=== PATIENT | female | born 1975 | race Caucasian/White ===

== ENCOUNTER → 2017-12-23 08:10 | Outpatient (CLI) | payer OTHER, SELFPAY ==
--- NOTE | 2017-12-23 08:12 | DI.US.S_ITS ---
PROCEDURE: US ABDOMEN LIMITED INDICATIONS: Abdomen/Pelvic pain r/o Umbilical hernia TECHNIQUE: Real-time focused scanning was performed of the abdomen, with image documentation. COMPARISON: [facility], CT, ABDOMEN/PELVIS WITH CONTRAST, 11/01/2008, 11:21. FINDINGS: No anterior abdominal wall or periumbilical hernia identified. IMPRESSION: No hernia identified sonographically. If indicated CT could be performed for further assessment. Dictated by: Clarke HELTON Interpreted: Codi Taylor MD on 12/23/2017 at 10:39 Approved by: Codi Taylor M.D. on 12/23/2017 at 15:08
== END ==
PROVIDERS: Family Provider Family Medicine; PCP Family Medicine; Visit Provider Obstetrics & Gynecology
DX: R10.9 Unspecified abdominal pain (principal); R10.2 Pelvic and perineal pain
CPT/HCPCS: 76705

== ENCOUNTER 2018-01-28 06:44 | Day surgery (SDC) | payer OTHER, SELFPAY ==
[2018-01-25 14:56] VITALS: BMI 33.3
[2018-01-28] VITALS (9 sets, daily range): BP systolic 120–170; BP diastolic 82–101; PULSE 55–74; RESP 12–22; TEMP 36.1–36.3; O2SAT 96–100; BMI 33.3
--- NOTE | 2018-01-28 | PATH_ITS ---
[facility] Accession Number: [id number] . 01 Material submitted: . UTERUS AND RIGHT OVARY . 02 Diagnosis: Uterus and Right Ovary, Laparoscopic Supracervical Hysterctomy and Right Oophorectomy (Weight 86 grams, Morcellated Specimen): Portions of myometrium with focal regions of possible adenomyosis; negative for atypia and malignancy. Weakly proliferative and disordered proliferative endometrium; negative for glandular hyperplasia, cytologic atypia, and malignancy. Ovary with a benign corpus luteum, a benign follicular cyst, and a benign serous cyst (1.7 cm in greatest dimension). [facility]/01/31/2018 . 02 Electronically signed: . Kavitha Contreras MD, Pathologist NPI- [id number] . 01 Gross description: . Received in formalin, labeled uterus + right ovary, is a morcellated uterus (86 grams, 10.5 x 10.3 x 4.5 cm in aggregate) and an ovary (4.1 x 2.7 x 1.8 cm). The cervix, second ovary and fallopian tubes are absent. The specimen cannot be oriented and the endometrium and myometrium cannot be grossly measured. The parenchyma is gallo-white and unremarkable. The serosa is pale gallo smooth and shiny. The ovary has gallo-yellow smooth and shiny bosselated and focally flat serosa. The parenchyma is gallo-white solid cystic with corpus albicans and corpus luteum identified. The cavities (0.5 cm-1.7 cm) contain clear colorless fluid. The linings are smooth and flat with no excrescences identified. Section code: (A1-A4) uterine parenchyma; (A5) ovary, serially sectioned, territory sales representative. ([id number]) /[facility] . 02 Pathologist provided ICD-10: N83.201 . 02 CPT . 324166 Performed at: 01 [facility] [address] [place] [address], [place], [place] [id number] MD Satish Nesbitt MD Phone: [phone] Performed at: [facility] [address] [place], [place] [id number] MD Sukh Schneider MD Phone: [phone]
--- NOTE | 2018-01-28 06:20 | PM.PREOP ---
Pre-operative Note Interval Note Pre-op Check: History & Physical Reviewed by Physician
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
[2018-01-28] MEDS: LACTATED RINGERS 1,000 ML 42 ML IV (07:25)
[2018-01-28] MEDS: MIDAZOLAM 2 MG/2 ML VIAL IV (07:47)
[2018-01-28] MEDS: APREPITANT 40 MG CAPSULE PO (07:48)
[2018-01-28] MEDS: CEFAZOLIN 2 GM/100 ML FROZ.PIGGY IV (07:48)
[2018-01-28] MEDS: ACETAMINOPHEN IV 1,000 MG/100 ML VIAL 400 MG IV (08:30)
--- NOTE | 2018-01-28 08:33 | SUR.OPER ---
Lithotomy on padded OR bed. Rheems Pad Positioner under torso. Head on pillow, arms padded and tucked at sides. Legs secured in padded yellow fins stirrups.
[2018-01-28] MEDS: BUPIVACAINE 0.5% W/ EPI (PF) 30 ML VIAL INJ (08:38)
[2018-01-28] MEDS: ROPIVACAINE 0.2% PF 2 MG/ML 10ML AMP 20 ML INJ (08:45)
--- NOTE | 2018-01-28 09:36 | P.OP_ITS ---
Operative Date/Time/Diagnoses - Date of procedure: 01/28/18 Time of procedure: 09:30 Pre-op diagnosis: Pelvic pain Right ovarian cyst Post-op diagnosis: same Procedure: Procedures Operation Date: 01/28/18 07:45 Actual Procedures Side Surgeon p Laparoscopic Supracervical Hysterectomy W/Left Oophorectomy Left Elle Byrne MD Laparoscopic supracervical hysterectomy Right oophorectomy Indications: Pelvic pain Right ovarian cyst Surgeon: Elle Byrne Sales Lead Generator: Nav Hassan Anesthesia Type: General and Local Operative Notes Findings: 8 week size anteverted uterus Multiple cysts on the right ovary Tubes absent Left ovary absent Closure Type: primary Specimen(s): uterus and other (Right ovary) Applied: catheter (Removed at the end of the case) Estimated blood loss (mL): 50 Blood products transfused: none Procedure in detail: The patient was taken to the operating room where she was placed in the dorsal supine position. After adequate general endotracheal anesthesia was achieved, she was placed in the dorsal lithotomy position, and prepped and draped in the usual sterile fashion. A timeout was performed. A bivalve speculum was placed into the vagina and the anterior lip of the cervix grasped with a single-tooth tenaculum. The cervical os was sequentially dilated until the ZUMI uterine manipulator could pass easily into the endometrial cavity. The single-tooth tenaculum was removed from the anterior lip of the cervix, and the bivalve speculum was removed from the vagina. Attention was then turned to the abdomen where 6 mL of half percent Marcaine with epinephrine were injected in the umbilical fold. A 5 mm incision was made. The Verhees needle was placed into the peritoneal cavity, and its placement confirmed by aspiration and drop test. The Verhees needle was removed. A 5 mm trocar was placed without difficulty. 2 other incisions were made midway between the pubic symphysis and umbilicus after 5 mL of half percent Marcaine with epinephrine were injected. These were 5 mm incisions. Two 5 mm trochars were placed under direct visualization. The right ovary was grasped with an atraumatic grasper. Using the plasma kinetic with settings of 40 W the infundibulopelvic ligament on the right side was cauterized and cut. The cornua of the uterus was then grasped with an atraumatic grasper. The round ligament and broad ligament was cauterized and cut with plasma kinetic. Hemostasis was achieved. The bladder flap was created using the plasma kinetic with cautery and cut care home across. The uterine arteries on the right side were extensively cauterized with plasma kinetic. All of this was repeated on the left side except the infundibulopelvic ligament was not cauterized and cut due to absence of left ovary. The remainder of the bladder flap was created using the plasma kinetic, and the bladder taken down off the lower uterine segment and cervix. Using the Linaloop, the cervix was amputated from the uterus 2 cm above the uterosacral ligaments, after the ZUMI uterine manipulator was removed from the uterus. A sponge stick was placed into the vagina. 6 mL of half percent Marcaine with epinephrine were injected above the pubic symphysis. A 12 mm trocar was placed. An Endobag was placed through the suprapubic incision and the uterus placed into the Endobag. The Delonte placed into the endobag. The uterus was hand morcellated in approximately 10 pieces. The Endobag was removed from the peritoneal cavity. No bleeding was noted. The instruments are removed from the abdomen. The CO2 was allowed to escape. The suprapubic incision was closed on the fascia with 0 Vicryl. The subcutaneous layer on the suprapubic incision was closed with 2 simple interrupted sutures of 3 0 Vicryl. All of the incisions were closed with 4-0 undyed Vicryl in a subcuticular fashion. Mastisol, Steri-Strips, 2 x 2, and op sites were placed over the incisions. The moistened sponge stick was removed from the vagina. Sponge, lap, and instrument counts were correct x-2. The patient tolerated the procedure well, was taken to PACU in stable condition. Complications: none Post-operative Condition: stable Disposition: PACU Plan for aftercare: Home after recovery
[2018-01-28] MEDS: fentaNYL 100 MCG/2 ML INJ IV ×2 (09:40→09:45)
[2018-01-28] MEDS: OXYCODONE/ACETAMINOPHEN 5/325 TABLET 1 TAB PO (09:59)
--- NOTE | 2018-01-28 10:56 | SUR.PHASEII ---
Isela desiring discharge home altho prior to surgery verbalizing desire to stay at overnight. This was discussed prior to discharge with Isela reinforcing desire to discharge home. Despite a drowsy affect, she is appropriate to conversation and mobility is also appropriate. To exit with volunteer at 1055.
== END 2018-01-28 10:55 | disposition home or self-care (01) ==
LOC: OR 06:45 → AC 06:46
PROVIDERS: Family Provider Family Medicine; PCP Family Medicine; Visit Provider Obstetrics & Gynecology
PROC: 0UT94ZL Resection of Uterus, Supracervical, Percutaneous Endoscopic Approach (ICD-10-PCS; CPT 58542; principal; 2018-01-28 07:45)
DX: N83.201 Unspecified ovarian cyst, right side (principal); F41.9 Anxiety disorder, unspecified; E87.6 Hypokalemia; I10 Essential (primary) hypertension; F17.210 Nicotine dependence, cigarettes, uncomplicated
CPT/HCPCS: 58542; J0131; J0330; J0690; J1100; J2250; J2405; J2704; J2795; J3010; J8501

== ENCOUNTER → 2018-03-24 10:08 | Outpatient (CLI) | payer OTHER, SELFPAY ==
[2018-03-24 11:09] LABS: Add Manual Diff / Slide Review NO; Basophils Percent Auto 1.4 % (0-2); Hematocrit 43.9 % (36-46); Hemoglobin 14.9 g/dL (12.0-16.0); Lymphocytes Percent Auto 37.1 % (25-40); Mean Corpuscular Hemoglobin 31.5 PG (26-34); Mean Corpuscular Volume 92.5 fL (80-100); Monocytes Percent Auto 6.3 % (3-14); Neutrophils Absolute Auto 3300 /uL (3000-5900); Neutrophils Percent Auto 52.2 % (50-75); Platelet Count 307 X10^3/uL (150-400); Red Blood Cell Count 4.75 X10^6/uL (4.0-5.2); Red Cell Distribution Width 13.3 % (11.6-14.8); White Blood Cell Count 6.3 X10^3/uL (4.5-11.0)
[2018-03-24 11:23] LABS: Alanine Aminotransferase 50 IU/L (9-52); Albumin 4.3 g/dL (3.5-5.0); Albumin Globulin Ratio 1.6 (1.0-2.8); Alkaline Phosphatase 47 U/L (38-126); Aspartate Aminotransferase 39 IU/L (14-36); BUN Creatinine Ratio 10.9 (6-22); Bilirubin Total 0.9 mg/dL (0.2-1.3); Blood Urea Nitrogen 12 mg/dL (7-17); Calcium 9.5 mg/dL (8.4-10.2); Carbon Dioxide 32 mmol/L (22-32); Chloride 98 mmol/L (98-107); Estimated Glomerular Filt Rate 54.5 mL/min (>60); Globulin 2.7 g/dL (1.7-4.1); Glucose 98 mg/dL (70-100); HEMOLYSIS < 15 (0-50); Magnesium 1.9 mg/dL (1.6-2.3); Potassium 3.6 mmol/L (3.4-5.1); Sodium 139 mmol/L (137-145)
[2018-03-24 12:29] LABS: Thyroid Stimulating Hormone 1.42 uIU/mL (0.47-4.68)
== END ==
PROVIDERS: Family Provider Family Medicine; PCP Family Medicine; Visit Provider Family Medicine
DX: I10 Essential (primary) hypertension (principal); R79.9 Abnormal finding of blood chemistry, unspecified
CPT/HCPCS: 36415; 80053; 83735; 84443; 85025

== ENCOUNTER → 2018-04-01 12:28 | Outpatient (CLI) | payer OTHER, SELFPAY ==
[2018-04-01 13:05] LABS: BUN Creatinine Ratio 14.4 (6-22); Blood Urea Nitrogen 13 mg/dL (7-17); Calcium 9.8 mg/dL (8.4-10.2); Carbon Dioxide 31 mmol/L (22-32); Chloride 97 mmol/L (98-107); Estimated Glomerular Filt Rate > 60.0 mL/min (>60); Glucose 95 mg/dL (70-100); HEMOLYSIS < 15 (0-50); Potassium 3.8 mmol/L (3.4-5.1); Sodium 139 mmol/L (137-145)
== END ==
PROVIDERS: Family Provider Family Medicine; PCP Family Medicine; Visit Provider Family Medicine
DX: R79.89 Other specified abnormal findings of blood chemistry (principal)
CPT/HCPCS: 36415; 80048

== ENCOUNTER 2018-04-15 23:42 | Emergency (ER) | payer OTHER, SELFPAY ==
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
[2018-04-15 23:55] VITALS: BP 159/131; PULSE 130; RESP 30; TEMP 37.2; O2SAT 100
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
--- NOTE | 2018-04-16 00:43 | PC.NURSE ---
Advocate is here.
[2018-04-16] MEDS: ONDANSETRON 4 MG ODT PO (03:30)
[2018-04-16] MEDS: cefTRIAXone 500 MG VIAL 250 MG IM (03:30)
[2018-04-16] MEDS: AZITHROMYCIN 250 MG TABLET 1000 MG PO (03:30)
[2018-04-16 04:09] VITALS: BP 142/98; PULSE 82; RESP 18; O2SAT 97
[2018-04-16 04:57] LABS: HIV 1 and 2 Antibody NEGATIVE (NEGATIVE)
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
[2018-04-19 14:25] LABS: HSV 2 IGG AB 5.93 index (< 0.90)
[2018-04-19 16:11] LABS: Hepatitis A Antibody IgM NONREACTIVE; Hepatitis Acute Panel Interp 0.01; Hepatitis B Core Antibody IgM NONREACTIVE; Hepatitis B Surface Antigen NONREACTIVE; Hepatitis C Antibody NONREACTIVE
[2018-04-21 12:23] LABS: Rapid Plasma Reagin NON-REACTIVE
== END 2018-04-16 04:10 | disposition home or self-care (01) ==
PROVIDERS: Emergency Provider Emergency Medicine; Family Provider Family Medicine; PCP Family Medicine
DX: T74.21XA Adult sexual abuse, confirmed, initial encounter (principal)
CPT/HCPCS: 80074; 86592; 86695; 86696; 86703; 96372; 99283; 99285; 99291; 99292; J0696

== ENCOUNTER → 2018-07-04 10:00 | Outpatient (CLI) | payer OTHER, SELFPAY | PROVIDERS: Family Provider Family Medicine; PCP Family Medicine | DX: Z23 Encounter for immunization (principal) | CPT/HCPCS: 90471; 90686 ==

== ENCOUNTER → 2018-07-21 12:43 | Outpatient (CLI) | payer OTHER, SELFPAY | PROVIDERS: Family Provider Family Medicine; PCP Family Medicine; Visit Provider Family Medicine | DX: M24.549 Contracture, unspecified hand (principal) | CPT/HCPCS: 95885; 95886; 95910 ==

== ENCOUNTER 2018-12-11 10:27 | Emergency (ER) | payer OTHER, SELFPAY ==
[2018-12-11 10:36] VITALS: BP 155/90; PULSE 52; RESP 13; TEMP 37; O2SAT 100
--- NOTE | 2018-12-11 12:57 | DI.RAD.S_ITS ---
PROCEDURE: XR THORACIC SPINE 2V INDICATIONS: back pain TECHNIQUE: 3 views of the thoracic spine were acquired. COMPARISON: None. FINDINGS: Bones: No fractures or dislocations. No suspicious bony lesions. 12 pairs of ribs are noted, and appear intact where visualized. Soft tissues: No paravertebral stripe thickening. IMPRESSION: Thoracic spine without acute fracture or malalignment. Dictated by: Elan Ferguson M.D. on 12/11/2018 at 13:47 Approved by: Elan Ferguson M.D. on 12/11/2018 at 13:48
--- NOTE | 2018-12-11 12:57 | DI.RAD.S_ITS ---
PROCEDURE: XR LUMBAR SPINE 2-3V INDICATIONS: back pain TECHNIQUE: 3 views of the lumbar spine were acquired. COMPARISON: None. FINDINGS: Bones: 5 [id number] vertebrae are present. There is normal bony alignment. Multilevel lumbar spondylosis. No acute vertebral body compression fractures. No suspicious bony lesions. Soft tissues: Overlying bowel gas pattern is normal. No suspicious soft tissue calcifications. IMPRESSION: Lumbar spine without acute osseous abnormalities. Multilevel lumbar spondylosis. Dictated by: Elan Ferguson M.D. on 12/11/2018 at 13:48 Approved by: Elan Ferguson M.D. on 12/11/2018 at 13:48
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
[2018-12-11] MEDS: KETOROLAC 60 MG/2 ML VIAL IM (13:34)
[2018-12-11] MEDS: CYCLOBENZAPRINE 10 MG TABLET PO (13:35)
--- NOTE | 2018-12-11 14:35 | PC.NURSE ---
standby with professor of german for rectal exam.
[2018-12-11 14:49] VITALS: BP 138/83; PULSE 54; RESP 17; O2SAT 100
== END 2018-12-11 15:32 | disposition home or self-care (01) ==
PROVIDERS: Emergency Provider Nurse Practitioner Family; PCP Family Medicine
DX: M54.5 Low back pain (principal)
CPT/HCPCS: 72070; 72100; 96372; 99283; J1885

== ENCOUNTER → 2018-12-28 11:58 | Outpatient (CLI) | payer OTHER, SELFPAY ==
--- NOTE | 2018-12-28 12:00 | DI.MRI.S_ITS ---
PROCEDURE: MR LUMBAR SPINE WO CON INDICATIONS: Low back pain radiating into left hip and left groin TECHNIQUE: Noncontrast sagittal T1 spin echo and T2 fast echo, sagittal STIR, axial T1 and T2 fast spin echo through the lumbar spine. Axial and oblique coronal T1 spin echo and STIR through the sacrum. In cases with scoliosis, additional coronal T2 fast spin echo may be performed. COMPARISON: None. FINDINGS: Image quality: Excellent. Alignment and Curvature: There is normal bony alignment. Bone Marrow: Reactive endplate change is noted adjacent to the L2-L3, L3-L4 and L4-L5 discs. No acute vertebral body compression fractures. No sacral fractures. Spinal Cord: Conus medullaris terminates at the L1 level. Visualized cord demonstrates normal signal and size. Paraspinous Soft Tissues: No paravertebral masses. L1-L2: Slight loss of disc signal. Minimal, diffuse disc bulge. Small right central disc protrusion. No central stenosis. No neural foraminal narrowing. No neural impingement. L2-L3: Slight loss of disc signal. No central stenosis. No neural foraminal narrowing. No neural impingement. L3-L4: Loss of disc signal and height. Moderate, diffuse disc bulge. Mild bilateral facet hypertrophy. Mild narrowing of the central canal. Moderate right and mild left neuroforaminal narrowing. No neural impingement. Focal high density zones noted in the posterior annulus compatible with fissures. L4-L5: Loss of the signal. Mild, diffuse disc bulge and small central disc protrusion. Sqza-qs-fpqddgih bilateral facet hypertrophy. Mild narrowing of the central canal. Mild right and moderate left neural foraminal narrowing. No neural impingement. L5-S1: Normal appearance. Sacrum: Sacral neural foramina appear normal throughout. Superior to the piriformis muscles, the pre-plexal structures appear normal, including the lumbosacral trunk and S1 root. Just anterior to the piriformis muscles, the sacral plexus proper demonstrates normal morphology (lumbosacral trunk, S1 to S3 nerve roots). Inferior to the piriformis muscles, the sciatic nerves appear normal. IMPRESSION: 1. Multilevel degenerative disease. 2. Multilevel facet arthropathy. 3. Mild L3-L4 and L4-L5 central canal narrowing. 4. Moderate right and mild left L3-L4 neural foraminal narrowing. Mild right and moderate left L4-L5 neural foraminal narrowing. 5. No neural impingement. 6. L3-L4 disc annulus fissures. Dictated by: Erin Olea MD, PhD on 12/28/2018 at 14:07 Approved by: Erin Olea MD, PhD on 12/28/2018 at 14:12
== END ==
PROVIDERS: PCP Family Medicine; Visit Provider Family Medicine
DX: M51.16 Intervertebral disc disorders with radiculopathy, lumbar region (principal); M47.26 Other spondylosis with radiculopathy, lumbar region; M48.061 Spinal stenosis, lumbar region without neurogenic claudication
CPT/HCPCS: 72148

== ENCOUNTER → 2019-03-13 10:32 | Outpatient (CLI) | payer OTHER, SELFPAY ==
--- NOTE | 2019-03-13 | DI.MG.S_ITS ---
BILATERAL DIGITAL SCREENING MAMMOGRAM 3D/2D WITH CAD: 03/13/2019 CLINICAL: Routine screening. Family history of breast cancer. Baseline exam. No prior exams were available for comparison. There are scattered fibroglandular elements in both breasts. Current study was also evaluated with a Computer Aided Detection (CAD) system. No significant masses, calcifications, or other findings are seen in either breast. IMPRESSION: NEGATIVE There is no mammographic evidence of malignancy. A 1 year screening mammogram is recommended. This exam was interpreted at Station ID: [id number]. NOTE: For mammograms, a report in lay terms will be sent to the patient. Approximately 15% of breast malignancies will not be visualized mammographically. In the management of a palpable breast mass, a negative mammogram must not discourage biopsy of a clinically suspicious lesion. Electronically Signed By: Floridalma egan/michelle:03/13/2019 13:25:59 letter sent: Normal Exam ACR BI-RADS Category 1: Negative [id number]
== END ==
PROVIDERS: PCP Family Medicine; Visit Provider Family Medicine
DX: Z12.31 Encounter for screening mammogram for malignant neoplasm of breast (principal); Z80.3 Family history of malignant neoplasm of breast
CPT/HCPCS: 77063; 77067

== ENCOUNTER → 2019-05-31 07:58 | Outpatient (CLI) | payer OTHER, SELFPAY ==
[2019-05-31 08:35] LABS: Add Manual Diff / Slide Review NO; Basophils Absolute Auto 100 /uL (0-100); Basophils Percent Auto 1.1 % (0-2); Eosinophils Absolute Auto 200 /uL (0-450); Eosinophils Percent Auto 2.6 % (2-4); Hematocrit 47.5 % (36-46); Hemoglobin 15.9 g/dL (12.0-16.0); Lymphocytes Absolute Auto 2800 /uL (1100-4500); Lymphocytes Percent Auto 36.4 % (25-40); Mean Corpuscular HGB Conc 33.5 % (30-36); Mean Corpuscular Hemoglobin 28.8 PG (26-34); Monocytes Absolute Auto 500 /uL (0-900); Monocytes Percent Auto 6.1 % (3-14); Neutrophils Absolute Auto 4100 /uL (1500-7000); Neutrophils Percent Auto 53.8 % (50-75); Platelet Count 282 X10^3/uL (150-400); Red Blood Cell Count 5.53 X10^6/uL (4.0-5.2); White Blood Cell Count 7.7 X10^3/uL (4.5-11.0)
[2019-05-31 09:01] LABS: Alanine Aminotransferase 40 IU/L (9-52); Albumin 4.8 g/dL (3.5-5.0); Albumin Globulin Ratio 1.8 (1.0-2.8); Alkaline Phosphatase 65 U/L (38-126); Aspartate Aminotransferase 32 IU/L (14-36); BUN Creatinine Ratio 27.1 (6-22); Bilirubin Total 0.7 mg/dL (0.2-1.3); Blood Urea Nitrogen 19 mg/dL (7-17); Calcium 10.2 mg/dL (8.4-10.2); Carbon Dioxide 27 mmol/L (22-32); Chloride 101 mmol/L (98-107); Cholesterol 260 mg/dL (140-199); Estimated Glomerular Filt Rate > 60.0 mL/min (>60); Globulin 2.7 g/dL (1.7-4.1); Glucose 101 mg/dL (70-100); HDL Cholesterol 48 mg/dL (40-60); HEMOLYSIS < 15 (0-50); LDL Cholesterol Calculated 135 mg/dL (<100); Potassium 3.6 mmol/L (3.4-5.1); Sodium 140 mmol/L (137-145); Total Protein 7.5 g/dL (6.3-8.2); Triglycerides 384 mg/dL (35-150)
[2019-05-31 09:02] LABS: Creatinine Urine Random 96.6 mg/dL
[2019-05-31 09:07] LABS: Microalbumi Creatinin Ratio Ur 7.2 ug/mg CR (<30); Microalbumin Urine Random 0.7 mg/dL (0-1.6)
[2019-05-31 09:36] LABS: TSH w/ Reflex to FT4 2.06 uIU/mL (0.47-4.68)
== END ==
PROVIDERS: PCP Family Medicine; Visit Provider Family Medicine
DX: I10 Essential (primary) hypertension (principal); R00.2 Palpitations
CPT/HCPCS: 36415; 80053; 80061; 82043; 82570; 84443; 85025

== ENCOUNTER → 2019-06-01 13:57 | Outpatient (CLI) | payer OTHER, SELFPAY ==
--- NOTE | 2019-06-16 15:08 | P.HOLT.S_ITS ---
Manager Process Excellence Report Referral & Results Date Patient Seen: 06/01/19 Requesting provider: Pamela Black Indication: Tachycardia Duration of monitoring (days): 11 Diary information: There were 44 patient triggered events and 13 diary entries from the patient Patient triggered events were associated with sinus rhythm, PACs, and PVCs Diary events were associated with sinus rhythm and PACs Data: Minimum heart rate identified was 44 beats per minute at 08:53 on 06/03/2019 Maximum heart rate was 144 beats per minute at 07:55 on 06/08/2019 Less than 1% of identified beats were either r ventricular or supraventricular ectopic in origin Vast majority of patient's triggered events were associated with sinus rhythm and no dysrhythmia Impression: Normal school bus monitor showing occasional PAC and PVC but no clear correlation between any dysrhythmia and patient's symptoms
== END ==
PROVIDERS: PCP Family Medicine; Visit Provider Family Medicine
DX: R00.0 Tachycardia, unspecified (principal)
CPT/HCPCS: 0296T; 0298T

== ENCOUNTER → 2020-05-22 16:26 | Outpatient (CLI) | payer OTHER, SELFPAY ==
[2020-05-22 17:28] LABS: Add Manual Diff / Slide Review NO; Basophils Absolute Auto 100 /uL (0-100); Basophils Percent Auto 0.7 % (0-2); Eosinophils Absolute Auto 300 /uL (0-450); Hematocrit 46.6 % (36-46); Hemoglobin 15.8 g/dL (12.0-16.0); Lymphocytes Absolute Auto 3100 /uL (1100-4500); Lymphocytes Percent Auto 41.7 % (25-40); Mean Corpuscular HGB Conc 33.8 % (30-36); Mean Corpuscular Hemoglobin 30.7 PG (26-34); Mean Corpuscular Volume 90.9 fL (80-100); Monocytes Absolute Auto 500 /uL (0-900); Monocytes Percent Auto 7.2 % (3-14); Neutrophils Absolute Auto 3400 /uL (1500-7000); Neutrophils Percent Auto 46.4 % (50-75); Platelet Count 261 X10^3/uL (150-400); Red Blood Cell Count 5.13 X10^6/uL (4.0-5.2); Red Cell Distribution Width 14.2 % (11.6-14.8); White Blood Cell Count 7.4 X10^3/uL (4.5-11.0)
[2020-05-22 17:46] LABS: C-Reactive Protein Quant 0.7 mg/dL (<1.0)
[2020-05-22 18:10] LABS: Erythrocyte Sedimentation Rate 5 MM/HR (0-20)
== END ==
PROVIDERS: PCP Family Medicine; Referring Provider Family Medicine; Visit Provider Family Medicine
DX: R51.9 Headache, unspecified (principal)
CPT/HCPCS: 36415; 85025; 85651; 86140

== ENCOUNTER → 2020-05-23 10:34 | Outpatient (CLI) | payer OTHER, SELFPAY ==
--- NOTE | 2020-05-23 10:35 | DI.MRI.S_ITS ---
PROCEDURE: MR HEAD/BRAIN WO/W CON INDICATIONS: shooting pain left cheek, concern trigeminal neuralgia TECHNIQUE: Noncontrast sagittal T1 spin echo, axial T2 fast spin echo, axial FLAIR, axial gradient echo, axial diffusion and ADC through the brain. Axial/sagittal/coronal 3-D CISS, thin-slice axial T1 spin echo with fat saturation through the skull base. After the administration of contrast, axial and coronal thin-slice T1 spin echo with fat saturation through the skull base, axial T1 spin echo with fat saturation through the brain. COMPARISON: None. FINDINGS: Image quality: Excellent. Trigeminal nerves: The bilateral trigeminal nerves are within normal limits. There is a loop of the left superior cerebellar artery which contacts the left trigeminal nerve. CSF spaces: Ventricles are normal in size and shape. No extra-axial fluid collections. Basal cisterns are patent. Brain: No intracranial bleeds or mass effects. No abnormal intracranial enhancement. Diffusion weighted images show no acute ischemic insults. Fernandes-white matter interface is intact. Brainstem is normal. Normal intravascular flow voids are present. Skull and face: Calvarial marrow signal is normal. Orbits appear normal. Sinuses: Sinuses and mastoids appear clear. IMPRESSION: 1. The left superior cerebellar artery contacts the left trigeminal nerve, possibly representing etiology of left-sided symptoms (i.e., trigeminal neuralgia secondary to vascular compression). Clinical correlation recommended. 2. Otherwise negative evaluation. No recent infarct. Dictated by: Elsie Reed M.D. on 05/23/2020 at 11:23 Approved by: Elsie Reed M.D. on 05/23/2020 at 11:27
== END ==
PROVIDERS: PCP Family Medicine; Referring Provider Family Medicine; Visit Provider Family Medicine
DX: G50.0 Trigeminal neuralgia (principal)
CPT/HCPCS: 70553

== ENCOUNTER → 2020-07-02 19:37 | Outpatient (CLI) | payer OTHER, SELFPAY | PROVIDERS: PCP Family Medicine; Referring Provider Internal Medicine; Visit Provider Internal Medicine | DX: Z23 Encounter for immunization (principal) | CPT/HCPCS: 90471; 90686 ==

== ENCOUNTER → 2021-04-04 07:46 | Outpatient (CLI) | payer SELFPAY ==
[2021-04-04 13:55] LABS: COVID19 -Nasal RAPID Negative (Negative)
== END ==
PROVIDERS: PCP Family Medicine; Visit Provider Nurse Practitioner
DX: Z20.822 Contact with and (suspected) exposure to COVID-19 (principal)
CPT/HCPCS: 87635

== ENCOUNTER → 2021-04-08 12:03 | Outpatient (CLI) | payer OTHER, SELFPAY ==
[2021-04-08 12:43] LABS: COVID19 -Nasal RAPID Negative (Negative)
== END ==
PROVIDERS: PCP Family Medicine; Visit Provider Physician Assistant
DX: Z20.822 Contact with and (suspected) exposure to COVID-19 (principal)
CPT/HCPCS: 87635

== ENCOUNTER → 2021-05-21 07:42 | Outpatient (CLI) | payer OTHER, SELFPAY ==
--- NOTE | 2021-05-21 | DI.MG.S_ITS ---
BILATERAL DIGITAL SCREENING MAMMOGRAM 3D/2D WITH CAD: 05/21/2021 CLINICAL: Routine screening. Family history of breast cancer. Comparison is made to exam dated: 03/13/2019 [facility]. There are scattered fibroglandular elements in both breasts. Current study was also evaluated with a Computer Aided Detection (CAD) system. No significant masses, calcifications, or other findings are seen in either breast. There has been no significant interval change. IMPRESSION: NEGATIVE There is no mammographic evidence of malignancy. A 1 year screening mammogram is recommended. This exam was interpreted at Station ID: [id number]. NOTE: For mammograms, a report in lay terms will be sent to the patient. Approximately 15% of breast malignancies will not be visualized mammographically. In the management of a palpable breast mass, a negative mammogram must not discourage biopsy of a clinically suspicious lesion. Electronically Signed By: Preston coyne/michelle:05/21/2021 08:35:25 letter sent: Normal Exam ACR BI-RADS Category 1: Negative [id number]
== END ==
PROVIDERS: PCP Family Medicine; Referring Provider Family Medicine; Visit Provider Family Medicine
DX: Z12.31 Encounter for screening mammogram for malignant neoplasm of breast (principal); Z80.3 Family history of malignant neoplasm of breast
CPT/HCPCS: 77063; 77067

== ENCOUNTER → 2021-07-10 13:42 | Outpatient (CLI) | payer OTHER, SELFPAY | PROVIDERS: PCP Family Medicine; Referring Provider Internal Medicine; Visit Provider Internal Medicine | DX: Z23 Encounter for immunization (principal) | CPT/HCPCS: 90471; 90686 ==

== ENCOUNTER → 2021-10-16 07:47 | Outpatient (CLI) | payer OTHER, SELFPAY ==
[2021-10-16 08:51] LABS: Add Manual Diff / Slide Review NO; Basophils Absolute Auto 100 /uL (0-100); Basophils Percent Auto 1.4 % (0-2); Eosinophils Absolute Auto 200 /uL (0-450); Eosinophils Percent Auto 2.9 % (2-4); Hemoglobin 14.9 g/dL (12.0-16.0); Lymphocytes Absolute Auto 1900 /uL (1100-4500); Lymphocytes Percent Auto 32.3 % (25-40); Mean Corpuscular HGB Conc 33.9 % (30-36); Mean Corpuscular Hemoglobin 30.4 PG (26-34); Mean Corpuscular Volume 89.9 fL (80-100); Monocytes Absolute Auto 300 /uL (0-900); Monocytes Percent Auto 5.2 % (3-14); Neutrophils Absolute Auto 3400 /uL (1500-7000); Neutrophils Percent Auto 58.2 % (50-75); Platelet Count 252 X10^3/uL (150-400); Red Blood Cell Count 4.89 X10^6/uL (4.0-5.2); Red Cell Distribution Width 14.2 % (11.6-14.8); White Blood Cell Count 5.9 X10^3/uL (4.5-11.0)
[2021-10-16 09:17] LABS: Hemoglobin A1C% w Est Avg Glu 6.7 % (4.0-6.0)
[2021-10-16 09:21] LABS: Alanine Aminotransferase 87 IU/L (<35); Albumin 4.1 g/dL (3.5-5.0); Albumin Globulin Ratio 1.6 (1.0-2.8); Alkaline Phosphatase 71 U/L (38-126); Aspartate Aminotransferase 86 IU/L (14-36); BUN Creatinine Ratio 11.4 (6-22); Bilirubin Total 0.7 mg/dL (0.2-1.3); Blood Urea Nitrogen 9 mg/dL (7-17); Carbon Dioxide 28 mmol/L (22-32); Chloride 105 mmol/L (98-107); Cholesterol 274 mg/dL (140-199); Estimated Glomerular Filt Rate > 60.0 mL/min (>60); Globulin 2.6 g/dL (1.7-4.1); Glucose 127 mg/dL (70-100); HDL Cholesterol 55 mg/dL (40-60); HEMOLYSIS < 15 (0-50); LDL Cholesterol Calculated 181 mg/dL (<100); Potassium 3.9 mmol/L (3.4-5.1); Sodium 138 mmol/L (137-145); Total Protein 6.7 g/dL (6.3-8.2); Triglycerides 192 mg/dL (35-150)
[2021-10-16 10:09] LABS: Vitamin B12 635 pg/mL (239-931)
[2021-10-16 10:28] LABS: Thyroid Stimulating Hormone 2.44 uIU/mL (0.47-4.68)
[2021-10-16 10:43] LABS: Creatinine Urine Random 167.1 mg/dL
[2021-10-16 10:45] LABS: Microalbumi Creatinin Ratio Ur 4.1 ug/mg CR (<30); Microalbumin Urine Random 0.7 mg/dL (0-1.6)
[2021-10-16 10:48] LABS: Vitamin D 25 Hydroxy (D3) < 12.8 ng/mL (30.0-100.0)
== END ==
PROVIDERS: PCP Family Medicine; Referring Provider Family Medicine; Visit Provider Family Medicine
DX: R53.83 Other fatigue (principal); I10 Essential (primary) hypertension
CPT/HCPCS: 36415; 80053; 80061; 82043; 82306; 82570; 82607; 83036; 84443; 85025

== ENCOUNTER → 2022-01-16 08:03 | Outpatient (CLI) | payer OTHER, SELFPAY ==
[2022-01-16 10:31] LABS: Alanine Aminotransferase 125 IU/L (<35); Albumin 4.7 g/dL (3.5-5.0); Albumin Globulin Ratio 1.7 (1.0-2.8); Alkaline Phosphatase 86 U/L (38-126); Aspartate Aminotransferase 76 IU/L (14-36); BUN Creatinine Ratio 17.1 (6-22); Bilirubin Total 0.6 mg/dL (0.2-1.3); Bilirubin Unconjugated 0.5 mg/dL (0.0-1.1); Blood Urea Nitrogen 14 mg/dL (7-17); Carbon Dioxide 26 mmol/L (22-32); Chloride 101 mmol/L (98-107); Estimated Glomerular Filt Rate > 60 mL/min (>60); Globulin 2.8 g/dL (1.7-4.1); Glucose 119 mg/dL (70-100); HEMOLYSIS < 15 (0-50); Sodium 136 mmol/L (137-145); Total Protein 7.5 g/dL (6.3-8.2)
[2022-01-16 10:47] LABS: Vitamin D 25 Hydroxy (D3) 40.2 ng/mL (30.0-100.0)
[2022-01-18 11:39] LABS: HBsAg Screen Negative (Negative); Hepatitis A Antibody IgM Negative (Negative); Hepatitis B Core Antibody IgM Negative (Negative); Hepatitis C Antibody 0.1 s/co ratio (0.0-0.9)
== END ==
PROVIDERS: PCP Family Medicine; Referring Provider Family Medicine; Visit Provider Family Medicine
DX: F10.21 Alcohol dependence, in remission (principal); I10 Essential (primary) hypertension; K58.9 Irritable bowel syndrome, unspecified; F41.8 Other specified anxiety disorders; R79.89 Other specified abnormal findings of blood chemistry
CPT/HCPCS: 36415; 80053; 80074; 80076; 82306

== ENCOUNTER → 2022-01-21 09:18 | Outpatient (CLI) | payer OTHER, SELFPAY ==
--- NOTE | 2022-01-21 09:20 | DI.US.S_ITS ---
PROCEDURE: US ABDOMEN COMPLETE INDICATIONS: RUQ PAIN; ELEVATED LFTS TECHNIQUE: Real-time scanning was performed of the abdominal and retroperitoneal organs, with image documentation. COMPARISON: [facility], US, US ABDOMEN LIMITED, 12/23/2017, 8:40. FINDINGS: Liver: The liver demonstrates normal size. The liver demonstrates generalized moderately increased echogenicity. This decreases ultrasound sensitivity for detection of hepatic masses. An area of focal fatty sparing can be seen adjacent to the gallbladder. Gallbladder: No findings of gallstones or sludge are seen. The gallbladder wall is not thickened, measuring 3 mm or less. A focus of gallbladder wall adenomyomatosis can be seen. No specific pericholecystic fluid is seen. The sonographic Brenner sign is negative. Biliary ducts: Intrahepatic bile ducts are non-dilated. Extrahepatic bile duct caliber measures 5 mm. Normal is 6-7 mm or less in diameter, or 10 mm or less post-cholecystectomy. Pancreas: Visualized portions of the pancreas are sonographically normal. Spleen: Spleen is normal in size and homogeneous in echotexture. Kidneys: Kidneys are normal in size and echotexture. Right kidney measures 12 cm long; left kidney measures 11.9 cm long. No hydronephrosis or nephrolithiasis. No solid masses. Aorta: Visualized aorta is normal in caliber at less than 3 cm. Iliacs: Proximal common iliac arteries are normal in caliber at less than 2.5 cm. IVC: Intrahepatic inferior vena cava is patent. Miscellaneous: No free abdominal fluid. IMPRESSION: The gallbladder demonstrates a normal sonographic appearance. No biliary dilatation is seen. The liver demonstrates increased echogenicity. This finding is nonspecific, yet it is most commonly attributed to fatty infiltration. Dictated by: Codey Cueto M.D. on 01/21/2022 at 15:59 Approved by: Codey Cueto M.D. on 01/21/2022 at 16:01
== END ==
PROVIDERS: PCP Family Medicine; Referring Provider Family Medicine; Visit Provider Family Medicine
DX: R10.11 Right upper quadrant pain (principal); R79.89 Other specified abnormal findings of blood chemistry
CPT/HCPCS: 76700

== ENCOUNTER → 2022-02-03 15:28 | Outpatient (CLI) | payer OTHER, SELFPAY ==
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
== END ==
PROVIDERS: PCP Family Medicine; Referring Provider Family Medicine; Visit Provider Family Medicine
DX: E11.9 Type 2 diabetes mellitus without complications (principal); Z71.3 Dietary counseling and surveillance
CPT/HCPCS: 97802

== ENCOUNTER → 2022-10-19 08:15 | Outpatient (CLI) | payer OTHER, SELFPAY ==
[2022-10-19 08:45] LABS: Hemoglobin A1C% w Est Avg Glu 6.3 % (4.0-6.0)
[2022-10-19 09:10] LABS: Alanine Aminotransferase 62 IU/L (<35); Albumin 4.3 g/dL (3.5-5.0); Albumin Globulin Ratio 1.4 (1.0-2.8); Alkaline Phosphatase 74 U/L (38-126); Aspartate Aminotransferase 49 IU/L (14-36); BUN Creatinine Ratio 15.4 (6-22); Bilirubin Total 0.5 mg/dL (0.2-1.3); Blood Urea Nitrogen 14 mg/dL (7-17); Calcium 9.8 mg/dL (8.4-10.2); Carbon Dioxide 30 mmol/L (22-32); Chloride 100 mmol/L (98-107); Cholesterol 303 mg/dL (140-199); Estimated Glomerular Filt Rate > 60 mL/min (>60); Globulin 3.1 g/dL (1.7-4.1); Glucose 118 mg/dL (70-100); HDL Cholesterol 45 mg/dL (40-60); Potassium 3.7 mmol/L (3.4-5.1); Sodium 138 mmol/L (137-145); Total Protein 7.4 g/dL (6.3-8.2)
[2022-10-19 09:16] LABS: HEMOLYSIS 23 (0-50)
[2022-10-19 09:26] LABS: Triglycerides 904 mg/dL (35-150)
== END ==
PROVIDERS: PCP Family Medicine; Referring Provider Family Medicine; Visit Provider Family Medicine
DX: E11.9 Type 2 diabetes mellitus without complications (principal)
CPT/HCPCS: 36415; 80053; 80061; 83036

== ENCOUNTER → 2022-11-06 14:23 | Outpatient (CLI) | payer OTHER, SELFPAY ==
--- NOTE | 2022-11-06 14:25 | DI.US.S_ITS ---
PROCEDURE: US ABDOMEN COMPLETE INDICATIONS: CHECK FOR HERNIA LIVER AND GALLBLADDER TECHNIQUE: Real-time scanning was performed of the abdominal and retroperitoneal organs, with image documentation. COMPARISON: [facility], US, US ABDOMEN COMPLETE, 01/21/2022, 9:52. FINDINGS: Liver: Liver is enlarged measuring 17.2 cm and increased in echotexture. Gallbladder: No stones. Wall thickness measures 3.1 mm. Biliary ducts: Intrahepatic bile ducts are non-dilated. Extrahepatic bile duct caliber measures 3.3 mm. Normal is 6-7 mm or less in diameter, or 10 mm or less post-cholecystectomy. Pancreas: Visualized portions of the pancreas are sonographically normal. Spleen: Spleen is normal in size and homogeneous in echotexture. Kidneys: Kidneys are normal in size and echotexture. Right kidney measures 10.9 cm long; left kidney measures is11.8 cm long. No hydronephrosis or nephrolithiasis. No solid masses. Aorta: Visualized aorta is normal in caliber at less than 3 cm. Iliacs: Proximal common iliac arteries are normal in caliber at less than 2.5 cm. IVC: Intrahepatic inferior vena cava is patent. Miscellaneous: No free abdominal fluid. IMPRESSION: Heptomegaly with steatosis. No gallstones. Wall thickness is at the upper limits of normal. This could be secondary to acalculus cholecystitis. However, wall thickening can be secondary to other etiologies such as hepatic disease, etc. Dictated by: Codi Taylor M.D. on 11/06/2022 at 16:11 Approved by: Codi Taylor M.D. on 11/06/2022 at 16:17
== END ==
PROVIDERS: PCP Family Medicine; Referring Provider Family Medicine; Visit Provider Family Medicine
DX: K76.0 Fatty (change of) liver, not elsewhere classified (principal); R10.9 Unspecified abdominal pain; R22.2 Localized swelling, mass and lump, trunk
CPT/HCPCS: 76700

== ENCOUNTER → 2023-01-11 11:32 | Outpatient (CLI) | payer OTHER, SELFPAY ==
[2023-01-11 13:26] LABS: Cholesterol 302 mg/dL (140-199); HDL Cholesterol 55 mg/dL (40-60); LDL Cholesterol Calculated 183 mg/dL (<100); Triglycerides 320 mg/dL (35-150)
[2023-01-12 07:43] LABS: x Labcorp Estim. Avg Glu (eAG) 134 mg/dL (.); x Labcorp Hemoglobin A1c 6.3 % (4.8-5.6)
== END ==
PROVIDERS: PCP Family Medicine; Referring Provider Family Medicine; Visit Provider Family Medicine
DX: E11.9 Type 2 diabetes mellitus without complications (principal)
CPT/HCPCS: 36415; 80061; 83036

== ENCOUNTER → 2023-02-23 15:03 | Outpatient (CLI) | payer OTHER, SELFPAY ==
[2023-02-23 20:27] LABS: Creatinine Urine Random 130.6 mg/dL
[2023-02-23 20:36] LABS: Microalbumin Urine Random < 0.6 mg/dL (0-1.6)
== END ==
PROVIDERS: PCP Family Medicine; Referring Provider Family Medicine; Visit Provider Family Medicine
DX: E11.9 Type 2 diabetes mellitus without complications (principal); I10 Essential (primary) hypertension
CPT/HCPCS: 82043; 82570

== ENCOUNTER → 2023-06-03 10:05 | Outpatient (CLI) | payer OTHER, SELFPAY ==
[2023-06-03 10:48] LABS: Add Manual Diff / Slide Review NO; Basophils Absolute Auto 100 /uL (0-100); Basophils Percent Auto 0.9 % (0-2); Eosinophils Absolute Auto 200 /uL (0-450); Eosinophils Percent Auto 1.9 % (2-4); Hemoglobin 14.6 g/dL (12.0-16.0); Lymphocytes Absolute Auto 3100 /uL (1100-4500); Lymphocytes Percent Auto 28.4 % (25-40); Mean Corpuscular HGB Conc 33.9 % (30-36); Mean Corpuscular Hemoglobin 30.7 PG (26-34); Mean Corpuscular Volume 90.4 fL (80-100); Monocytes Absolute Auto 500 /uL (0-900); Monocytes Percent Auto 4.4 % (3-14); Neutrophils Absolute Auto 7000 /uL (1500-7000); Neutrophils Percent Auto 64.4 % (50-75); Platelet Count 267 X10^3/uL (150-400); Red Blood Cell Count 4.75 X10^6/uL (4.0-5.2); Red Cell Distribution Width 13.1 % (11.6-14.8); White Blood Cell Count 10.9 X10^3/uL (4.5-11.0)
[2023-06-03 11:06] LABS: Alanine Aminotransferase 75 IU/L (<35); Albumin 4.4 g/dL (3.5-5.0); Albumin Globulin Ratio 1.5 (1.0-2.8); Alkaline Phosphatase 90 U/L (38-126); Aspartate Aminotransferase 57 IU/L (14-36); Bilirubin Total 0.5 mg/dL (0.2-1.3); Blood Urea Nitrogen 15 mg/dL (7-17); Calcium 9.9 mg/dL (8.4-10.2); Carbon Dioxide 30 mmol/L (22-32); Chloride 100 mmol/L (98-107); Estimated Glomerular Filt Rate > 60 mL/min (>60); Glucose 124 mg/dL (70-100); HEMOLYSIS < 15 (0-50); Potassium 3.8 mmol/L (3.4-5.1); Sodium 139 mmol/L (137-145); Total Protein 7.4 g/dL (6.3-8.2)
== END ==
PROVIDERS: PCP Family Medicine; Referring Provider Family Medicine; Visit Provider Family Medicine
DX: K92.1 Melena (principal)
CPT/HCPCS: 36415; 80053; 85025

== ENCOUNTER 2023-06-25 09:08 | Day surgery (SDC) | payer OTHER, SELFPAY ==
[2023-06-25] VITALS (7 sets, daily range): BP systolic 123–149; BP diastolic 80–94; PULSE 60–67; RESP 12–18; TEMP 36.2–36.8; O2SAT 93–100; BMI 37.4
[2023-06-25] MEDS: LACTATED RINGERS 1,000 ML 42 ML IV (09:46)
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
--- NOTE | 2023-06-25 10:50 | P.OP.COLON_ITS ---
Operative Date/Time/Diagnoses Date of procedure: 06/25/23 Time of procedure: 10:50 Pre-op diagnosis: Change in bowel habits, abdominal pain, rectal bleeding Post-op diagnosis: same Procedure & Clinicians Study performed: Colonoscopy with anesthesia Same procedure as scheduled: Yes Indications: Rectal bleeding, abdominal pain, change caliber of stool Surgeon: Barbara Driver Procedure Notes Procedure in detail: Preop diagnosis: Change in caliber of stool, rectal bleeding, abdominal pain, history of colon polyps Postop diagnosis: Same Operative procedure: Colonoscopy under anesthesia Surgeon: Daisy Driver MD Findings: Normal-appearing colon, no significant diverticulosis. She does have rectosigmoid angiodysplasia in multiple areas largest measuring cm in diameter. No active bleeding. Procedure: Patient placed in lateral position. Rectal exam performed showing normal tone no masses. She does have external hemorrhoidal tags. Scope was inserted into the rectum and advanced to ileocecal valve with minimal difficulty . Insufflation extraction scope including retroflex in the rectum had the above findings. Impression: Rectal bleeding is coming from rectosigmoid angiodysplasia. Which are small in number as well as size. Six of areas visualized on this procedure. Otherwise no abnormalities to explain diffuse abdominal pain or the change in the caliber of the stool of recent. Plan: Possible referral to GI for a minimally invasive for procedure or 2nd opinion. Findings: other findings (Rectosigmoid angiodysplasia) Specimen(s): none sent Complications: none Impression: No polyps, no diverticulosis. She does have small scattered areas of angiodysplasia of the rectosigmoid region. Post-procedure Recommendations: Colonoscopy in 10 years Follow up: as needed Disposition: PACU
[2023-06-25] MEDS: ACETAMINOPHEN 325 MG TABLET 975 MG PO (11:37)
== END 2023-06-25 11:47 | disposition home or self-care (01) ==
PROVIDERS: PCP Family Medicine; Referring Provider Surgery; Visit Provider Surgery
PROC: 0DJD8ZZ Inspection of Lower Intestinal Tract, Via Natural or Artificial Opening Endoscopic (ICD-10-PCS; CPT 45378; principal; 2023-06-25 10:15)
DX: K55.21 Angiodysplasia of colon with hemorrhage (principal)
CPT/HCPCS: 45378; J2250; J2704

== ENCOUNTER → 2023-07-14 14:47 | Outpatient (CLI) | payer OTHER, SELFPAY | PROVIDERS: PCP Family Medicine; Referring Provider Family Medicine; Visit Provider Family Medicine | DX: Z23 Encounter for immunization (principal) | CPT/HCPCS: 90471; 90686 ==

== ENCOUNTER → 2023-11-29 09:50 | Outpatient (CLI) | payer OTHER, SELFPAY ==
--- NOTE | 2023-11-29 09:51 | DI.RAD.S_ITS ---
PROCEDURE: XR KNEE RT 3V INDICATIONS: knee pain TECHNIQUE: 3 views of the knee were acquired. COMPARISON: None. FINDINGS: Bones: No fractures or dislocations. No suspicious bony lesions. Soft tissues: No joint effusion. No suspicious soft tissue calcifications. IMPRESSION: No acute bony abnormality or significant effusion. Dictated by: Bong Early M.D. on 11/29/2023 at 12:25 Approved by: Bong Early M.D. on 11/29/2023 at 12:26
== END ==
PROVIDERS: PCP Family Medicine; Referring Provider Family Medicine; Visit Provider Family Medicine
DX: M25.561 Pain in right knee (principal)
CPT/HCPCS: 73562